=== PATIENT | female | born 1985 | race African-American/Black ===

== ENCOUNTER 2024-08-27 23:33 | Emergency (ER) | payer OTHER ==
[~2024-08-27] VITALS: Ht 152.4 cm; Wt 136.1 kg
[2024-08-28 02:15] LABS: Source, Urine Clean Catch
[2024-08-28 02:18] LABS: Bilirubin, Urine Neg (Neg); Glucose Qualitative, Urine Neg (Neg); Ketones, Urine Neg (Neg); Leukocyte Esterase, Urine 2+ (Neg); Protein, Urine 2+ (Neg); Specific Gravity, Urine 1.025 (1.003-1.022); Urobilinogen, Urine NORM (Normal)
[2024-08-28 02:32] LABS: Color, Urine Yellow (P-Yellow)
[2024-08-28 02:33] LABS: Red Blood Cells, Urine 0-2 /hpf (0-2)
[2024-08-28] MEDS ORDERED: Lidocaine 4% 1 Patch TOP ONE (03:35)
[2024-08-28] MEDS ORDERED: CEPH500 PO (03:45)
[2024-08-28] MEDS ORDERED: LIDO700A20 TOP (03:46)
[2024-08-28 04:06] VITALS: BP 151/92
== END 2024-08-28 04:12 | disposition home or self-care (01) ==
LOC: ER 23:33
PROVIDERS: Emergency Medicine
DX: M62.830 Muscle spasm of back (principal); N39.0 Urinary tract infection, site not specified; E86.0 Dehydration; Z68.43 Body mass index [BMI] 50.0-59.9, adult; Z88.6 Allergy status to analgesic agent
CPT/HCPCS: 81001; 81025; 87086; 99283; A9270